=== PATIENT | male | born 1985 | race Caucasian/White ===

== ENCOUNTER 2017-10-09 11:59 | Emergency (ER) | payer OTHER ==
[~2017-10-09] VITALS: Ht 185.4 cm; Wt 121.0 kg
[2017-10-09 12:02] VITALS: Ht 185.4 cm; Wt 121.0 kg
[2017-10-09] MEDS ORDERED: CLR10 PO (12:07)
[2017-10-09] MEDS ORDERED: IBUPROFEN 200 MG TAB PO STA (12:09)
[2017-10-09] MEDS ORDERED: XYLOCAINE 1%/SOD BICARB 20 ML VIAL INFIL ONE (12:15)
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
[2017-10-09] MEDS ORDERED: CEPH500C PO (12:41)
[2017-10-09] MEDS ORDERED: CEPHALEXIN MONOHYDRATE 250 MG CAP PO ONE (12:45)
[2017-10-09 12:55] VITALS: BP 137/92; PULSE 70; TEMP 36.5; O2SAT 95
== END 2017-10-09 13:11 | disposition home or self-care (01) ==
LOC: C.EDB 12:02 → C.EDD 13:11
DX: S01.81XA Laceration without foreign body of other part of head, initial encounter (principal); W22.8XXA Striking against or struck by other objects, initial encounter